=== PATIENT | male | born 1975 | race African-American/Black ===

== ENCOUNTER 2018-01-07 05:36 | Day surgery (SDC) | payer OTHER ==
[~2018-01-07] VITALS: Ht 177.8 cm; Wt 76.7 kg
--- NOTE | ~2018-01-07 | OP ---
PATIENT NAME: DEVON YEE MEDICAL RECORD: [id number] :79 LOCATION:D[facility] ADMISSION DATE: SURGEON: ALEXEY FORBES MD DATE OF OPERATION: 01/07/2018 PREOPERATIVE DIAGNOSES: 1. Intractably symptomatic external hemorrhoids. 2. Bleeding internal hemorrhoids. 3. Fourth-degree internal hemorrhoidal prolapse of the anus. POSTOPERATIVE DIAGNOSES: 1. Intractably symptomatic external hemorrhoids. 2. Bleeding internal hemorrhoids. 3. Fourth-degree internal hemorrhoidal prolapse of the anus. PROCEDURE: Procedure for prolapse and hemorrhoids. SURGEON: Alexey Forbes MD HOME HEALTH AID: None. BLOOD LOSS: Minimal. ANESTHESIA: General. COMPLICATIONS: None. The risks, possible complications, and alternatives to the procedure were explained to the patient. He elects to proceed. The discussion specifically included, but was not limited to, bleeding requiring an emergency reoperation, infection, postoperative fecal incontinence, postoperative anal stenosis, and recurrent hemorrhoidal difficulties. OPERATIVE COURSE: The patient was conveyed to the operating room electively on 01/07/2018. General anesthesia was induced by the anesthesia staff. The patient was placed in the lithotomy position. The buttocks were taped laterally. The anus and perineum were sterilely prepped and draped. I dilated the anus laterally to 3 fingers. A PPH dilator retractor was sewn in place circumferentially to the anoderm with 2-0 silks. A mucosal pursestring suture of 2-0 Prolene was applied 1 cm cephalad to the clear retractor. The PPH stapling device was inserted with the cone cephalad to the pursestring suture, which was then tightened and tied. The stapling device was engaged. It was held in place for 3 minutes and then fired. It was then removed. There was an entire donut of hemorrhoidal and lower rectal mucosal tissue within the PPH stapling device. Bleeding along the anastomotic staple line was controlled with [id number] 3-0 Vicryls. There was still some internal hemorrhoidal prolapse. Four internal hemorrhoids were then ligated with 3-0 Vicryl sutures. A combination of steroid and Marcaine were used to infiltrate the perianal tissues. Gelfoam was applied within the anus and rectum. An anesthetic cream was applied to the external hemorrhoids. OPERATIVE REPORT [id number] DEVON YEE The patient was extubated and conveyed to the post-anesthesia care unit, where he was in stable condition. There is no need for the patient to see me in followup unless he develops a complication related to this operative procedure. I am dismissing him back to the retirement with [facility] as I want him to have a stool softener. Additionally, Valium, which is a good anal muscle relaxant and helps avoid anal spasms. If Valium is not available, another benzodiazepine may work as well. Also, he likely is going to require some type of analgesia. I have written for some Bowdon, but tramadol would likely do fine as well. He is going to pass some hemostatic packing with his first bowel movement and this could be a normal finding. He is not to do any lifting or straining for about 3 weeks. He should have bleeding likely with every bowel movement for the next 3 weeks. This is not bleeding from hemorrhoids, but is bleeding from the operative site. Thanks for referring inmate Stuart to see me. Please call me if you have any questions. My name is Dr. Alexey Forbes. My cell phone number is [phone]. TRANSINT:[id number] Voice Confirmation ID: [id number] DOCUMENT ID: [id number] ALEXEY FORBES MD at 1024 CC: [id number] DICTATION DATE: 01/07/18934 JOB SPOTTER: 01/07/1855 [facility] 01/07/18 [id number] [place] [address]
[2018-01-07] MEDS ORDERED: DYAZIDE 37.5/251 CAP PO (06:07)
[2018-01-07] MEDS ORDERED: FERROUS SULFAT325 MG PO (06:15)
[2018-01-07 06:28] VITALS: BP 125/82; Ht 177.8 cm; Wt 76.7 kg
[2018-01-07 06:38] LABS: HEMATOCRIT 34.7 % (42.0-54.0); HEMOGLOBIN 11.6 g/dL (13.5-17.5); MCH 29.2 pg (26.0-34.0); MCHC 33.4 g/dL (31.0-37.0); MCV 87.4 fL (80.0-100.0); MEAN PLATELET VOLUME 10.7 fL (7.4-10.4); RBC 3.97 10x6/uL (4.20-6.10); RDW 12.8 % (11.5-14.5)
== END 2018-01-07 12:00 | disposition home or self-care (01) ==
LOC: D.OPS 05:36 → D.SDCHOLD 05:37 → D.OPS 08:00
PROVIDERS: Anesthesiology
DX: K64.3 Fourth degree hemorrhoids (principal); K62.2 Anal prolapse; K64.4 Residual hemorrhoidal skin tags